=== PATIENT | female | born 1990 | race Caucasian/White ===

== ENCOUNTER 2017-04-16 13:33 | Observation (INO) | payer MEDICAID ==
[~2017-04-16] VITALS: Ht 167.6 cm; Wt 102.1 kg
[2017-04-16] MEDS ORDERED: PREN-88 PO (16:46)
[2017-04-16 17:37] VITALS: BP 116/69
== END 2017-04-16 17:50 | disposition home or self-care (01) ==
LOC: L&D 13:33
PROVIDERS: ADMIT Specialist; ATTEND Specialist
DX: O26.893 Other specified pregnancy related conditions, third trimester (principal); R10.9 Unspecified abdominal pain; Z3A.34 34 weeks gestation of pregnancy
CPT/HCPCS: 76805; 76818; 99281; G0378